=== PATIENT | male | born 1940 | race Caucasian/White ===

== ENCOUNTER 2023-08-06 13:10 | Emergency (ER) | payer OTHER ==
[2023-08-06 13:50] VITALS: TEMP 97.5; BMI 19.8
[2023-08-06] MEDS ORDERED: ceFAZolin SODIUM 1 GM VIAL ONE (17:05)
[2023-08-06] MEDS: CEFAZOLIN 2 GM in DEXTROSE 5%-WATER - 50 ML IVPB ONE (17:41)
[2023-08-06 17:42] LABS: BASO % 0.4 % (0-2.0); EOS % 0.2 % (0-4.5); HEMATOCRIT 42.6 % (35.4-49); HEMOGLOBIN 14.7 GM/dL (11.7-16.9); LYMPH % 13.3 % (8-40); MCH 34.2 pg (25.7-33.7); MCHC 34.5 g/dl (32.0-35.9); MEAN CELL VOLUME 99.2 fl (80-96); MONO % 6.1 % (3.8-10.2); PLATELET COUNT 162 10^3/uL (134-434); RBC 4.29 M/mm3 (4.00-5.60); WHITE BLOOD COUNT 6.3 K/mm3 (4.0-10.0)
[2023-08-06 17:56] VITALS: BP 126/74; PULSE 62; RESP 20
[2023-08-06 18:10] LABS: POTASSIUM 5.2 mmol/L (3.5-5.1)
[2023-08-06 18:11] LABS: CALCIUM 9.6 mg/dL (8.5-10.1)
[2023-08-06 18:12] LABS: ALBUMIN 3.6 g/dl (3.4-5.0); BLOOD UREA NITROGEN 17.2 mg/dL (7-18)
[2023-08-06 18:15] LABS: CREATININE 0.8 mg/dL (0.55-1.3)
[2023-08-06 18:17] LABS: BILIRUBIN,TOTAL 0.7 mg/dL (0.2-1); TOT PROT 7.8 g/dl (6.4-8.2)
== END 2023-08-06 17:56 | disposition short-term general hospital (02) ==
LOC: JER 13:10
DX: S62.634A Displaced fracture of distal phalanx of right ring finger, initial encounter for closed fracture (principal); S61.411A Laceration without foreign body of right hand, initial encounter; W31.2XXA Contact with powered woodworking and forming machines, initial encounter; Y92.009 Unspecified place in unspecified non-institutional (private) residence as the place of occurrence of the external cause
CPT/HCPCS: 36415; 80053; 85025; 86850; 86900; 86901; 96365; 99285-25